=== PATIENT | male | born 1965 | race Caucasian/White ===

== ENCOUNTER 2018-07-25 09:11 | Emergency (ER) | payer MEDICAID ==
[2018-07-25] MEDS: AMOXICILLIN/CLAV 875 MG TAB PO (12:59)
== END 2018-07-25 13:31 | disposition home or self-care (01) ==
LOC: FTE 09:11
DX: S41.111A Laceration without foreign body of right upper arm, initial encounter (principal); W54.0XXA Bitten by dog, initial encounter; Y92.9 Unspecified place or not applicable
CPT/HCPCS: 99283; Z7502